=== PATIENT | male | born 1990 | race Caucasian/White ===

== ENCOUNTER 2020-01-30 17:08 | Emergency (ER) | payer BC, SELFPAY ==
[2020-01-30 17:10] VITALS: BP 159/104; PULSE 100; RESP 15; TEMP 36.7; O2SAT 97; BMI 48.9
--- NOTE | 2020-01-30 17:23 | ED.DCSUM_ITS ---
- ER Visit Summary Date of Service: 01/30/20 Chief Complaint: [Abdominal pain] History of Present Illness: The patient is a 29 M [presents to the emergency department with left-sided abdominal pain that he said for about 2 weeks. Patient denies any fever. He denies nausea or vomiting. He denies diarrhea. Denies blood in stool or black tarry stool. Patient states the pain initially started when he sneezed real hard and he felt a twinge and sharp pain in his left upper quadrant. He has had the pain ever since that time. He states the pain tends to come and go and is not always there. Patient states the pain is worse with certain movements that he felt like maybe he just pulled a muscle. Patient came in today because he is about to start work back up and he is concerned about aggravating what he suspected was a muscle pull. Patient was seen in urgent care and referred to the emergency department because of possible concern for diverticulitis. Patient states that he did not believe this was diverticulitis because his mother's had it and felt that it was just simply a muscle pull.] Physical Examination: [HEENT-PERRLA, EOMI. Cranial nerves II through XII grossly intact. TMs clear. Mucous membranes moist. No adenopathy. Cardiovascular-regular rate and rhythm without murmur or ectopy Lungs-clear to auscultation, chest wall stable without crepitus or subcu emphysema Abdomen-normoactive bowel sounds, soft. Patient has some tenderness over the left upper quadrant. There is no rebound, rigidity, or peritoneal signs. No hernias or masses palpated. Patient is obese. Extremities-intact ?4, normal range of motion, normal pulses, atraumatic] Test Results: [I discussed with patient possibly obtaining some lab studies as well as a CT scan to evaluate further however my suspicion for diverticulitis at this point is low given that he is had symptoms for over 2 weeks and symptoms tend to come and go. He is had no other symptoms such as fever or bloody stools. Patient opted against any lab or imaging studies as he continues to believe this is all just related to a muscle pull.] Emergency Department Course and Treatment: [She will be given a prescription for a few [place] for pain as needed. He will be given work restrictions.] Treatment Plan: [Patient will be referred to primary care physician for follow- up in 3 to 5 days.] Disposition: [Discharged home in stable condition] Impression: [Abdominal pain-etiology uncertain] This note was generated with evidanza dictation software. It may contain incorrect words, spelling, and punctuation that were not noted in review of the chart prior to signing ED Disposition - Plan for ED Patient: Referrals: NOT,DEFINED [Primary Care Provider] -
--- NOTE | 2020-01-30 17:26 | ED.DEP ---
ED Disposition - Plan for ED Patient: Instructions: ED Unknown Causes of Abdominal Pain Male Prescriptions: Hydrocodone Bitart/Apap 5-325 [[place] 5MG-325MG] 1 tab PO Q4H PRN PRN 2 Days #10 tab PRN Reason: Pain Prescription Printed Referrals: NOT,DEFINED [Primary Care Provider] - Jose Manuel Topete MD [STAFF PHYSICIAN] - 3-5 Days
[2020-01-30 17:57] VITALS: RESP 16
== END 2020-01-30 18:00 | disposition home or self-care (01) ==
LOC: ED 17:51
PROVIDERS: Emergency Provider Emergency Medicine
DX: R10.12 Left upper quadrant pain (principal)
CPT/HCPCS: 99282

== ENCOUNTER 2020-08-26 15:37 | Emergency (ER) | payer BC, SELFPAY ==
[2020-08-26 15:38] VITALS: BP 188/106; PULSE 103; RESP 16; TEMP 36.3; O2SAT 97; BMI 47.6
--- NOTE | 2020-08-26 16:23 | US_ITS ---
STUDY: SCROTUM ULTRASOUND REASON FOR EXAM: Male, 29 years old. RT TESTICLE PAIN AND SWELLING TECHNIQUE: Ultrasound evaluation of the scrotum was performed with color Doppler and static phillips-scale imaging. COMPARISON: None. FINDINGS: RIGHT TESTICLE INTRATESTICULAR: There is a normal size of the right testicle. The right testicle measures 3.6 x 2.6 x 2.7 cm. There is a homogenous echotexture. There is normal arterial and normal venous vascularity. There is no demonstrated right testicular mass or cyst. EXTRATESTICULAR: The epididymis is normal in size. The epididymis head measures 1.4 x 1.3 cm. There is normal vascularity of the epididymis. There is no demonstrated epididymal cystic structure. There is a large hydrocele.. Thin septations and mild debris are present There is no demonstrated varicocele. There is no demonstrated extratesticular mass or cyst. Scrotum is thick-walled measuring 5 mm. LEFT TESTICLE INTRATESTICULAR: There is a normal size of the left testicle. The left testicle measures 3.2 x 1.6 x 2.3 cm. There is a homogenous echotexture. Several microcalcifications are noted. There is normal arterial and normal venous vascularity. There is no demonstrated left testicular mass or cyst. EXTRATESTICULAR: The epididymis is normal in size. The epididymis head measures 1 x 1 cm. There is normal vascularity of the epididymis. There is no demonstrated epididymal cystic structure. There is no demonstrated hydrocele. There is no demonstrated varicocele. There is no demonstrated extratesticular mass or cyst. Thick-walled scrotum measuring 7 mm. US/Testicular with Arterial Flow IMPRESSION: 1. Limited number of microcalcifications on the left, otherwise unremarkable bilateral testicles. 2. Large right hydrocele. 3. Thick-walled scrotum consistent with history of swelling. Electronically Signed: Malinda Reilly MD at 18:14 EST Tel , Service support ,
--- NOTE | 2020-08-26 16:26 | ED.DCSUM_ITS ---
History of Present Illness Chief Complaint: Male Pain/Injury Informant: Patient Onset: Weeks - 3 weeks Current Severity: Moderate Maximum Severity: Moderate Narrative: Patient presents with a 3-week history of right testicular pain. He was initially seen at urgent care and then followed up by Dr. Mendez. Patient states that an ultrasound in the office indicated he had a hydrocele that appeared to be infected. He was placed on Keflex 3 times daily and started that on the ninth. Patient states in spite of taking the Keflex he has noted very little improvement in the swelling or pain. He is taking ibuprofen at home. He denies fever or chills. Past Medical History - Allergies and Home Meds Allergies/Adverse Reactions: Allergies No Known Allergies Allergy (Verified 01/30/20 17:09) Primary Care Physician: Care Physician,No Primary [Primary Care Provider] - Past Medical History: None Smoking Status: Never smoker Review of Systems General: Denies: Chills, Fever Eyes: Denies: Visual changes - bilaterally ENT: Denies: Bilateral ear pain, - Respiratory: Denies: Dyspnea Gastrointestinal: Denies: Abdominal pain Genitourinary: Reports: - - Right testicular pain and swelling Musculoskeletal: Denies: Extremity Pain Skin: Denies: Rash Neurological: Denies: Headache Hematologic: Denies: Easy bruising, Easy bleeding Allergy: Denies: Uticaria Physical Exam Vital Signs/Narrative: Vital Signs Temp Pulse Resp BP Pulse Ox 08/26/20 15:38 97.3 F L 103 H 16 188/106 H 97 Inital Vital Signs reviewed: Yes General: Well nourished, Well developed Head: Normocephalic ENT: Moist mucous membranes Neck: Supple Cardiovascular: Regular rate, Regular rhythm Respiratory: No distress, CTA bilaterally Abdomen: Soft, Nontender : - - Scrotal edema noted. Mild tenderness on the right. No lesions noted. No sign of cellulitis. Skin: Normal color Neurological: Alert, Oriented x3 Psychological: Normal affect Diagnostic/Tx/Re-eval Impressions Testicular Ultrasound 08/26/20 16:23 IMPRESSION: 1. Limited number of microcalcifications on the left, otherwise unremarkable bilateral testicles. 2. Large right hydrocele. 3. Thick-walled scrotum consistent with history of swelling. Electronically Signed: Malinda Reilly MD at 18:14 EST Tel , Service support , 08/26/20 16:23 US Testicular [Testicular with Arterial Flow] [US] Stat Laboratory Results 08/26/20 16:28 Urine Color Yellow Urine Clarity Clear Urine pH 6.0 Ur Specific [place] 1.015 Urine Protein 15 H Urine Glucose (UA) Normal Urine Ketones 5 H Urine Occult Blood Negative Urine Nitrite Negative Urine Bilirubin Negative Urine Urobilinogen Normal Ur Leukocyte Esterase Negative Urine RBC 0 SEEN Urine WBC 0-5 SEEN Ur Squamous Epith Cells 0-5 SEEN Urine Bacteria 0 SEEN Urine Mucus 2+ - Medical Decision Making Urinalysis is unremarkable. Ultrasound shows large right-sided hydrocele. I did speak with Dr. Mendez. He asked that we switch the patient's antibiotics from Keflex to Bactrim and Cipro. Patient was instructed on using scrotal support. ED Disposition - Plan for ED Patient: Disposition: Home or Assisted Living Diagnosis: Hydrocele Instructions: ED Hydrocele Type Not Specified Prescriptions: Smz/Tmp Ds [Bactrim Ds] 1 tab PO BID #20 tab Transmission Status: Pending to [facility] Ciprofloxacin [Cipro] 500 mg PO BID #14 tab Transmission Status: Pending to [facility] Referrals: Bartolome Mendez MD [STAFF PHYSICIAN] - 1 Week if not improving
[2020-08-26 16:34] LABS: Bacteria 0 SEEN /hpf (None Seen); Red Blood Cells-Urine 0 SEEN /hpf (0-5)
[2020-08-26 16:40] LABS: Color, Urine Yellow (Yellow); Glucose, Dipstick Normal (Normal); Ketone-Dipstick 5 mg/dl (Negative); Leukocyte Esterase-Dipstick Negative /ul (Negative); Nitrite-Dipstick Negative (Negative); Occult Blood-Urine Negative /ul (Negative); Protein-Dipstick 15 mg/dl (Negative); Specific Gravity, Urine 1.015 (1.002-1.030); Urine Bilirubin Dipstick Negative (Negative); Urine Clarity Clear (Clear); Urine Urobilinogen Normal (Normal)
[2020-08-26 17:32] LABS: Mucous, Urine 2+ /hpf (<or=2+); Squamous Epithelial Cells - UA 0-5 SEEN /hpf (0-5); White Blood Cells 0-5 SEEN /hpf (0-5)
== END 2020-08-26 18:49 | disposition home or self-care (01) ==
PROVIDERS: Emergency Provider Emergency Medicine
DX: N43.3 Hydrocele, unspecified (principal)
CPT/HCPCS: 76870; 81001; 93976; 99282

== ENCOUNTER 2020-09-06 10:42 | Day surgery (SDC) | payer BC, SELFPAY ==
[2020-09-06] VITALS (8 sets, daily range): BP systolic 117–152; BP diastolic 73–94; PULSE 78–94; RESP 16–18; TEMP 36.4–37; O2SAT 92–100; BMI 49.2
[2020-09-06] MEDS: Lactated Ringers 1,000 ML 100 ML IV (11:10)
[2020-09-06] MEDS: Bupivacaine Mpf 0.5% 30 ML VIAL (11:34)
--- NOTE | 2020-09-06 11:49 | PCM.HP.STD ---
History of Present Illness Date of Admission: 09/06/20 Chief Complaint: Right hydrocele The patient is a 29 year old male with a symptomatic right hydrocele plan to proceed with removal of the hydroceles been given him a lot of pain and discomfort the last few weeks. Past Medical History Allergies No Known Allergies Allergy (Verified 09/06/20 10:53) Home Medications: Ambulatory Orders Medication Instructions Recorded Ciprofloxacin [Cipro] 500 mg PO BID #14 tab 08/26/20 Smz/Tmp Ds [Bactrim Ds] 1 tab PO BID #20 tab 08/26/20 Surgical History: no surgical history Smoking Status: Never smoker Tobacco Use: Non-smoker Review of Systems Constitutional: Denies: Chills, Fever, Weight Change HEENT: Denies: Head Aches, Sinus Congestion, Sinus Drainage Cardiovascular: Denies: Chest Pain, Palpitations Respiratory: Denies: Cough, Shortness of breath at rest, Sputum production Gastrointestinal: Denies: Abdominal Pain, Nausea, Vomiting Genitourinary: Denies: Dysuria Musculoskeletal: Denies: Joint Pain, Joint Tenderness Skin: Denies: Rash, Wounds Neurological: Denies: Numbness, Tingling, Focal weakness Psychiatric: Denies: Anxiety, Depression, Homicidal Ideations, Suicidal Ideations Hematologic/ Lymphatic: Denies: Easy Bruising, Easy Bleeding VTE Information - Inpt Only VTE Present on Admission: No - Physical Exam Vitals/I&O's: Vital Signs Temp Pulse Resp BP Pulse Ox 98.6 F 78 16 152/94 H 100 09/06/20 10:56 09/06/20 10:56 09/06/20 10:56 09/06/20 10:56 09/06/20 10:56 Oxygen Delivery Method Room Air Weight: 155.582 kg Body Mass Index (BMI) 49.2 General: Alert, Oriented x3, Cooperative HEENT: Atraumatic, PERRLA, EOMI, Normocephalic Neck: Supple, No JVD, Negative Carotid Bruits Lungs: Clear to auscultation, Normal air movement Cardiovascular: Regular rate, No murmurs Abdomen: Bowel Sounds Present, Soft, Non Tender Extremities: No edema, Capillary Refill Less than 3 Seconds Skin: No rashes, No breakdown Musculoskeletal: No Tenderness to Palpation of Joints or Extremities Neurological: Cranial nerves II-XII grossly intact Psych/Mental Status: Normal Affect, Appropriate Microbiology Past 72 Hours 09/04/20 Unknown Interface Orders SARS-CoV-2 Antigen (Rapid) - Final Current Medications Lactated Ringer's () 1,000 mls @ 100 mls/hr IV .Q10H JUAN Last Admin: 09/06/20 11:10 Dose: 100 mls/hr Documented by: Assessment/Plan Removal of the right hydrocele.
--- NOTE | 2020-09-06 11:53 | PCM.DC.URO ---
Discharge Diet: Light diet - advance as tolerated Discharge Activity: May not drive while taking narcotic pain medications. Call your doctor if your incision/area has: Sudden Increased Bleeding, Increased Pain/ Swelling Instructions: Hydrocele Surgery (Hydrocelectomy) Allergies/Adverse Reactions: Allergies No Known Allergies Allergy (Verified 09/06/20 10:53) Medications to take at Discharge Ciprofloxacin [Cipro] 500 mg PO BID #14 tab 08/26/20 Smz/Tmp Ds [Bactrim Ds] 1 tab PO BID #20 tab 08/26/20 Hydrocodone/Acetaminophen [[place] 5-325 Tablet] 1 each PO Q4H PRN PRN 5 Days #14 tablet 09/06/20 Smz/Tmp Ds [Bactrim Ds] 1 tab PO BID #20 tab 09/06/20 The following prescriptions were given: Smz/Tmp Ds [Bactrim Ds] 1 tab PO BID #20 tab Transmission Status: Pending to [facility] Hydrocodone/Acetaminophen [[place] 5-325 Tablet] 1 each PO Q4H PRN PRN 5 Days #14 tablet PRN Reason: Pain Score 1-10 Transmission Status: Sent to [facility] Primary Care Physician: Care Physician,No Primary [Primary Care Provider] - Test Results: Test results from this visit will be discussed in further detail at your follow-up appointment, if applicable. Please Follow Up With: Bartolome Mendez MD - keep elaina that you have. When: in 2 weeks, please call to make an appointment.
--- NOTE | 2020-09-06 12:18 | OP.PCM_ITS ---
Report of Operation Date of Procedure: 09/06/20 Pre-Operative Diagnosis: Symptomatic right hydrocele Post-Operative Diagnosis: Same Surgery/Procedure Performed:: Excision of right hydrocele Description of Surgical Findings:: 29-year-old male taken back to the operating room at the smooth induction of general anesthesia he was placed in dorsolithotomy position. The penis and testicles were prepped and draped in usual sterile fashion. We shaved the midline scrotum. I made a 2-1/2 cm incision in the midline raphae dissected down to the hydrocele sac on the right side grabbed the sac with Allis clamps opened up the sac drained it and then pulled the testicle through the incision and then of the edges of the sac were then imbricated using large procedure to imbricate the edge of the sac some of the sac was also excised with electrocaut ayanna but is a very tight tense sac so not much sac tissues are removed I then placed the testicle back into the scrotum closed the small incision in 2 layers with a 3-0 chromic in a 4-0 chromic in a running fashion. The testicle looked normal the epididymis certainly inflamed. Patient's anesthetic was reversed taken back to PACU in good condition we will continue with antibiotics and pain medicine. Type of Anesthesia:: General Drains: none - Admit VTE Documentation VTE Present on Admission: No
--- NOTE | 2020-09-06 12:40 | HYD_PTH ---
PATIENT: BLANKA CARLOS LOC: [facility] [place] U#:[id number] AGE/SX: 29/M ROOM: RE09/06/[address]: Dr. Bartolome Mendez MD : 1990 BED: DIS: 09/06/2020 SPEC #: [id number] RECD: 09/06/20 14:38 STATUS: NEERAJ REJeffy #: [id number] TATO: 09/06/20 12:[address]: Bartolome Mendez DEPT: SURGICAL PATHOLOGY RECD BY: Julia Paredes ENTERED: 09/09/20 06:51 SP TYPE: HYDROCELE OTHR DR: No Primary Care Phys Tissues: HYDROCELE Procedures: Surgery Specimen Level II HEADER OPERATION: Hydrocelectomy PRE-OP DIAGNOSIS: Epididymo-orchitis; encysted hydrocele TISSUE SUBMITTED: Right hydrocele sac MICROSCOPIC DIAGNOSIS Right hydrocele sac: Pieces of fibroadipose and fibroconnective tissue with chronic inflammation and reactive changes, clinically hydrocele sac. RAPHAEL:nacho 09/10/20 MICROSCOPIC DESCRIPTION Slides are reviewed. GROSS DESCRIPTION Received in fixative is one container labeled with the patient's name and designated right hydrocele sac. The specimen consists of three variable sized pieces of collado membranous tissue that in aggregate measure 2 x 2 x 0.4 cm. The largest piece is bisected. The entire specimen is submitted in one cassette. / RAPHAEL:nacho 09/09/20 TC:5 CPT: [id number]
== END 2020-09-06 13:54 | disposition home or self-care (01) ==
LOC: SDC 10:42 → AC 10:43
PROVIDERS: Referring Provider Urology; Visit Provider Urology
PROC: (CPT 55040; principal; 2020-09-06 12:25)
DX: N43.3 Hydrocele, unspecified (principal); N45.3 Epididymo-orchitis; Z20.828 Contact with and (suspected) exposure to other viral communicable diseases
CPT/HCPCS: 55040; 87426; 88302; C9803; J7120; J2405